=== PATIENT | female | born 1990 | race Caucasian/White ===

== ENCOUNTER 2017-04-14 22:05 | Emergency (ER) | payer OTHER ==
[~2017-04-14] VITALS: Ht 160 cm; Wt 104.3 kg
--- NOTE | ~2017-04-14 | EKG ---
[address] [address] ELECTROCARDIOGRAM REPORT Name: DIA LINCOLN Room #: [id number] Admission: 04/14/17 Attend Phys: Discharge: 04/15/17 Date of : [birth year] Report #: [id number] THIS REPORT FOR: //name// [facility] ED Test Date: 2017-04-14 Test Time: 22:16:15 Pat Name: DIA LINCOLN Department: Room: Gender: F [employer] Technician: ZORA : 1990 Requested By: Mora Heard Order Number: [id number] MD: Jonh Hand Measurements Intervals [place] Rate: 122 P: 32 NV: 154 QRS: 50 QRSD: 98 T: 14 QT: 333 QTc: 475 Interpretive Statements Sinus tachycardia Probable left atrial enlargement RSR' in V1 or V2, probably normal variant No previous ECG available for comparison Electronically Signed On 04-15-2017 8:53:33 [employer] by John Hand [email or web address] <ELECTRONICALLY SIGNED> By: John Hand MD 04/15/17 0853 [id number] 15 John Hand MD /KALA
[2017-04-14] MEDS ORDERED: NOHOMEMEDICATIONS (22:22)
[2017-04-14 22:38] LABS: ABSOLUTE NEUTROPHILS 3.9 thou/uL (1.4-8.2); BASOPHILS 0.4 % (0.0-2.0); EOSINOPHILS 3.1 % (0.0-3.0); HEMATOCRIT 41.8 % (37.0-47.0); HEMOGLOBIN 14.3 gm/dL (12.0-15.0); LYMPHOCYTES 36.2 % (24.0-44.0); MCHC 34.1 g/dL (28.0-37.0); MCV 93.6 fL (80.0-100.0); PLATELET COUNT 401 thou/uL (150-400); POLYS 53.3 % (36.0-66.0); RBC 4.47 mil/uL (4.20-5.00); RDW 13.1 % (10.5-14.5); WBC 7.4 thou/uL (4.0-11.0)
[2017-04-14 22:45] LABS: ANION GAP 13 mmol/L (7-16); BUN 15 mg/dL (7-18); CALCIUM 8.8 mg/dL (8.5-10.1); CHLORIDE 104 mmol/L (98-107); CO2 25 mmol/L (21-32); CREATININE 0.7 mg/dL (0.6-1.0); GLUCOSE 96 mg/dL (74-106); POTASSIUM 3.8 mmol/L (3.5-5.1); SODIUM 142 mmol/L (136-145)
[2017-04-14 22:54] LABS: ALBUMIN 3.4 g/dL (3.4-5.0); SGOT 74 U/L (15-37); SGPT 103 U/L (30-65); TOTAL BILIRUBIN 0.3 mg/dL (<0.1-1.0); TOTAL PROTEIN 7.7 g/dL (6.4-8.2); TROPONIN-I < 0.04 ng/mL (<0.06)
[2017-04-14 23:19] LABS: URINE CLARITY CLOUDY
[2017-04-14 23:27] LABS: AMP/METHAMP POSITIVE (Negative); BARBITURATES Negative (Negative); BENZODIAZEPINES Negative (Negative); COCAINE Negative (Negative); METHADONE Negative (Negative); OPIATES Negative (Negative); PCP Negative (Negative)
[2017-04-14 23:35] LABS: URINE COLOR RED
[2017-04-14 23:36] LABS: URINE BILIRUBIN ND (Negative); URINE BLOOD ND (Negative); URINE GLUCOSE-RANDOM* ND (Negative); URINE KETONES ND (Negative); URINE LEUKOCYTES ND (Negative); URINE NITRITE ND (Negative); URINE PROTEIN (DIPSTICK) ND (Negative); URINE SPECIFIC GRAVITY ND (1.005-1.035); URINE UROBILINOGEN ND E.U./dl (0.2-1.0)
[2017-04-14 23:37] LABS: BACTERIA 1-9 Few /HPF (None Seen); CASTS None Seen /LPF (None Seen); CRYSTALS None Seen /LPF (None Seen); SQUAMOUS 4-10 Moderate /LPF (0-3); URINE RBC >20 Many /HPF (0-2); URINE WBC 6-15 Few /HPF (0-5)
== END 2017-04-15 01:01 | disposition home or self-care (01) ==
LOC: ER 22:05
PROVIDERS: Nurse Practitioner Family
DX: R00.0 Tachycardia, unspecified (principal); F15.10 Other stimulant abuse, uncomplicated; E66.9 Obesity, unspecified; F10.10 Alcohol abuse, uncomplicated; I10 Essential (primary) hypertension

== ENCOUNTER 2018-06-22 13:06 | Inpatient (IN) | payer OTHER ==
[~2018-06-22] VITALS: Ht 157.5 cm; Wt 141.5 kg
[~2018-06-22 13:06] MED LIST: NOHOMEMEDICATIONS
[2018-06-22 13:51] VITALS: BP 130/90
[2018-06-22 15:06] LABS: ABSOLUTE NEUTROPHILS 3.5 thou/uL (1.4-8.2); BASOPHILS 0.5 % (0.0-2.0); EOSINOPHILS 4.4 % (0.0-3.0); HEMATOCRIT 45.5 % (37.0-47.0); HEMOGLOBIN 15.4 gm/dL (12.0-15.0); LYMPHOCYTES 32.1 % (24.0-44.0); MCH 31.1 pg (26.0-34.0); MCHC 33.8 g/dL (28.0-37.0); MONOCYTES 8.9 % (1.0-8.0); PLATELET COUNT 360 thou/uL (150-400); POLYS 54.1 % (36.0-66.0); RBC 4.94 mil/uL (4.20-5.00); RDW 12.8 % (10.5-14.5); WBC 6.4 thou/uL (4.0-11.0)
[2018-06-22 15:15] LABS: CREATININE 0.9 mg/dL (0.6-1.0)
[2018-06-22 15:21] LABS: ALBUMIN 3.5 g/dL (3.4-5.0); TOTAL BILIRUBIN 0.5 mg/dL (<0.1-1.0); TOTAL PROTEIN 7.8 g/dL (6.4-8.2)
[2018-06-22 15:28] LABS: URINE BILIRUBIN NEGATIVE (Negative); URINE BLOOD 3+ (Negative); URINE CLARITY SL CLOUDY; URINE COLOR YELLOW; URINE GLUCOSE-RANDOM* NEGATIVE (Negative); URINE KETONES NEGATIVE (Negative); URINE NITRITE-REFLEX NEGATIVE (Negative); URINE PROTEIN (DIPSTICK) NEGATIVE (Negative); URINE UROBILINOGEN 0.2 E.U./dl (0.2-1.0)
[2018-06-22 15:29] LABS: URINE LEUKOCYTES-REFLEX 1+ (Negative)
[2018-06-22 15:43] LABS: SQUAMOUS >10 Many /LPF (0-3)
[2018-06-22 15:44] LABS: CASTS None Seen /LPF (None Seen); CRYSTALS None Seen /LPF (None Seen); URINE RBC 0-2 Rare /HPF (0-2); URINE WBC-REFLEX 6-15 Few /HPF (0-5)
[2018-06-22 16:31] LABS: AMP/METHAMP POSITIVE (Negative); BARBITURATES Negative (Negative); BENZODIAZEPINES Negative (Negative); COCAINE Negative (Negative); METHADONE Negative (Negative); OPIATES Negative (Negative); PCP Negative (Negative)
[2018-06-22 19:00] LABS: MAGNESIUM 1.7 mg/dL (1.8-2.4)
[2018-06-22 19:55] VITALS: BP 169/94
[2018-06-22 20:04] VITALS: BP 169/93
--- NOTE | 2018-06-22 22:54 | NUR ---
PATIENT ARRIVED VIA WHEELCHAIR FROM ER AROUND 2019. SHE WAS ABLE TO AMBULATE TO THE BED WITHOUT INCIDENT. PATIENT IS ALERT AND ORIENTED AND ABLE TO PARTICIPATE IN HER ADMISSION AND CALL APPROPRIATELY FOR NEEDS. CIWA ASSESSMENTS STARTED PER PROTOCOL. NURSE TO COMPLETE ADMISSION AND INITIATE CARE PLAN.
[2018-06-23 00:25] VITALS: BP 100/40
[2018-06-23 04:42] VITALS: BP 133/84
--- NOTE | 2018-06-23 05:25 | NUR ---
PATIENT WAS ADMITTED AND CARE PLAN INITIATED THIS SHIFT. VITAL SIGNS STABLE WITH PATIENT HAVING NO COMPLAINTS OF PAIN OR NAUSEA. CIWA PER PROTOCOL WITH MEDICATION PROVIDED APPROPRIATELY. PATIENT IS FULLY ORIENTED AND ABLE TO CALL APPROPRIATELY FOR NEEDS. PATIENT WAS ABLE TO AMBULATE TO RESTROOM WITH ASSISTANCE INCIDENT FREE. CONTINUE PLAN OF CARE.
[2018-06-23 06:00] LABS: CALCIUM 8.1 mg/dL (8.5-10.1); CREATININE 0.7 mg/dL (0.6-1.0); MAGNESIUM 2.1 mg/dL (1.8-2.4); POTASSIUM 3.5 mmol/L (3.5-5.1)
[2018-06-23 08:20] VITALS: BP 131/89
[2018-06-23 11:08] VITALS: BP 132/96
--- NOTE | 2018-06-23 16:17 | NUR ---
Assumed care of Pt at 0700. Pt alert and oriented, in no acute distress. reports feeling poorly. CIWA 7. complains of headache. up w/ sba. finding good relief with current med regimen. calls appropriately. sinus on telemetry. good appetite. pt progressing toward poc goals.
[2018-06-23 19:43] VITALS: BP 123/83
[2018-06-24] VITALS (7 sets, daily range): BP systolic 125–141; BP diastolic 79–99
--- NOTE | 2018-06-24 03:14 | NUR ---
PATIENT IS SLOWLY PROGRESSING IN HER CARE PLAN. VITAL SIGNS STABLE WITH PATIENT HAVING NO COMPLAINTS OF PAIN. PATIENT DID COMPLAIN OF SLIGHT NAUSEA WHICH WAS TREATED EFFECTIVELY WITH MEDICATION AND NON PHARMACOLOGICAL INTERVENTION. FULLY ORIENTED, PATIENT IS ABLE TO CALL APPROPRIATELY FOR NEEDS AND PARTICIPATE IN CARE PLAN. SHE DID FREQUENTLY STATE ANXIETY WHICH WAS ADEQUATELY TREATED. CIWA ASSESSMENT WITH MEDICATION PER PROTOCOL. PATIENT HAS BEEN ABLE TO AMBULATE TO THE BEDSIDE COMMODE WITH ASSISTANCE INCIDENT FREE. SHE DOES APPEAR UNSTABLE AND HAS STATED "DIZZINESS" WHEN ON FEET. CONTINUE PLAN OF CARE.
--- NOTE | 2018-06-24 09:30 | NUR ---
RD consult received for obesity. BMI 57.1=extreme class III obesity. Admitted for etoh detox. Hx +tobacco, marijuana, meth use. Psych consulted. Visit this am, drowsy, stating appetite is good, no questions. On PNV, thiamine replacement. Low nutrition risk
--- NOTE | 2018-06-24 12:41 | NUR ---
ASSESSMENT: cm reviewed CHART AND MET WITH PATIENT AND HER SIGNIFICANT OTHER AT THE BEDSIDE. PT IS ALERT AND ORIENTED X4. PT WAS ADMITTED WITH ALCOHOL W/D, ELEVATED LFTS AND UTI. PT REPORTS SHE LIVES AT HOME WITH HER SIGNIFICANT OTHER AND IS FULLY INDEPENDENT WITH ADLS AND AMBULATION. PT HAS HX OF DRUG/ALCOHOL ABUSE. CM DISCUSSED ROLE. CM OFFERED PATIENT OUTPATIENT RESOURCES FOR AA/DRUG ABUSE PER HER REQUEST. CM OFFERED AA INFORMATION AND OUTPATIENT RESOURCES WELL DETOX CENTERS AND SAFETY NET CLINICS. CM OFFERED PATIENT RESOURCE SHEET TO FIND A PCP. PT REPORTS SHE IS CURRENTLY MEDICAID PENDING. PT REPORTS SHE WILL HAVE NO NEEDS FROM CM PRIOR TO DISCHARGE.
[2018-06-24] MEDS ORDERED: PEPCID20 MG PO (13:25)
[2018-06-24] MEDS ORDERED: NICOTINE TRANSD14 M1 TRANSDERM (13:25)
[2018-06-24] MEDS ORDERED: ATIVAN1 MG PO (13:25)
[2018-06-24] MEDS ORDERED: PRENATAL PO (13:25)
[2018-06-24] MEDS ORDERED: VITAMIN B-1100 M2 PO (13:25)
[2018-06-24] MEDS ORDERED: CIPRO250 M1 PO (13:25)
--- NOTE | 2018-06-24 14:07 | NUR ---
GAIT MUCH STEADIER NOW..WALKED ONE LAP IN [place] WITH STANDBY ASSIST..DENIES VERTIGO OR WEAKNESS..
== END 2018-06-24 15:10 | disposition home or self-care (01) | DRG 432 ==
LOC: ER 13:06 → EROBS 18:21 → 3W 18:21
PROVIDERS: Nurse Practitioner Acute Care; Nurse Practitioner Family; ADMIT Internal Medicine
DX: K70.10 Alcoholic hepatitis without ascites (principal); G92 Toxic encephalopathy; F10.239 Alcohol dependence with withdrawal, unspecified; Z68.43 Body mass index [BMI] 50.0-59.9, adult; N39.0 Urinary tract infection, site not specified; I10 Essential (primary) hypertension; F17.210 Nicotine dependence, cigarettes, uncomplicated; E66.9 Obesity, unspecified; F15.10 Other stimulant abuse, uncomplicated; F41.9 Anxiety disorder, unspecified; F32.9 Major depressive disorder, single episode, unspecified; R74.0 Nonspecific elevation of levels of transaminase and lactic acid dehydrogenase [LDH]; E87.6 Hypokalemia; G43.909 Migraine, unspecified, not intractable, without status migrainosus; F12.90 Cannabis use, unspecified, uncomplicated; E66.01 Morbid (severe) obesity due to excess calories; E83.42 Hypomagnesemia; B19.20 Unspecified viral hepatitis C without hepatic coma; Z98.891 History of uterine scar from previous surgery; Z79.899 Other long term (current) drug therapy; Z83.3 Family history of diabetes mellitus; Z71.6 Tobacco abuse counseling; Z71.51 Drug abuse counseling and surveillance of drug abuser
CPT/HCPCS: 10080; 10879

== ENCOUNTER 2018-08-13 18:32 | Emergency (ER) | payer OTHER ==
[~2018-08-13] VITALS: Ht 157.5 cm; Wt 127.0 kg
[~2018-08-13 18:32] MED LIST changes: +ATIVAN1 MG PO; +CIPRO250 M1 PO; +NICOTINE TRANSD14 M1 TRANSDERM; +PEPCID20 MG PO; +PRENATAL PO; +VITAMIN B-1100 M2 PO
[2018-08-13] MEDS ORDERED: KEFLEX500 M1 PO (21:29)
[2018-08-13] MEDS ORDERED: IBUPROFEN 600600 M1 PO (21:29)
[2018-08-13] MEDS ORDERED: HYDROCODONE-AP1 EAC6 PO (21:29)
[2018-08-13 22:06] VITALS: BP 121/79
== END 2018-08-13 22:06 | disposition home or self-care (01) ==
LOC: ER 18:32
DX: N61.1 Abscess of the breast and nipple (principal); F17.210 Nicotine dependence, cigarettes, uncomplicated; F41.9 Anxiety disorder, unspecified; F31.9 Bipolar disorder, unspecified; G43.909 Migraine, unspecified, not intractable, without status migrainosus; Z98.890 Other specified postprocedural states

== ENCOUNTER 2019-02-02 16:05 | Emergency (ER) | payer OTHER ==
[~2019-02-02] VITALS: Ht 157.5 cm; Wt 108.0 kg
[~2019-02-02 16:05] MED LIST changes: +HYDROCODONE-AP1 EAC6 PO; +IBUPROFEN 600600 M1 PO; +KEFLEX500 M1 PO
[2019-02-02] MEDS ORDERED: IBUPROFEN 600600 M1 PO (17:26)
[2019-02-02 17:53] VITALS: BP 132/86
== END 2019-02-02 18:01 | disposition home or self-care (01) ==
LOC: ER 16:05
DX: S02.2XXA Fracture of nasal bones, initial encounter for closed fracture (principal); S00.12XA Contusion of left eyelid and periocular area, initial encounter; G43.909 Migraine, unspecified, not intractable, without status migrainosus; F41.9 Anxiety disorder, unspecified; F31.9 Bipolar disorder, unspecified; F17.210 Nicotine dependence, cigarettes, uncomplicated; Z98.890 Other specified postprocedural states; Y04.0XXA Assault by unarmed brawl or fight, initial encounter; Y93.89 Activity, other specified; Y92.89 Other specified places as the place of occurrence of the external cause; Y99.8 Other external cause status